=== PATIENT | female | born 2000 | race Caucasian/White ===

== ENCOUNTER 2018-10-19 00:19 | Inpatient (IN) ==
[2018-10-19 00:56] VITALS: BMI 29.5
[2018-10-19 01:06] LABS: BILIRUBIN,URINE NEGATIVE (NEGATIVE); BLOOD/HEMOGLOBIN,URINE NEGATIVE (NEGATIVE); GLUCOSE, URINE NEGATIVE (NEGATIVE); KETONES,URINE NEGATIVE (NEGATIVE); LEUKOCYTE ESTERASE ,URINE 1+ (NEGATIVE); NITRITES,URINE NEGATIVE (NEGATIVE); PROTEIN,URINE NEGATIVE (NEGATIVE); UROBILINOGEN,URINE NORMAL (NORMAL)
[2018-10-19 01:14] LABS: APPEARANCE,URINE HAZY (CLEAR); COLOR,URINE YELLOW (YELLOW); RBC,URINE 0-2 /HPF (NONE SEEN)
[2018-10-19 01:15] LABS: BACTERIA,URINE 2+ /HPF (NEGATIVE); SQUAMOUS EPITHELIAL CELL,UR FEW /HPF (NEGATIVE)
[2018-10-19] MEDS ORDERED: ZOFRAN INJ 4 MG VIAL ONE (07:35)
[2018-10-19] MEDS ORDERED: NS 1000 ML 1,000 ML ONE (07:36)
[2018-10-19] MEDS ORDERED: PITOCIN ONE (07:39)
[2018-10-19] MEDS ORDERED: D5 1/2 NS 1000 ML 1,000 ML ONE (07:45)
[2018-10-19] MEDS ORDERED: ZOFRAN INJ 4 MG VIAL IVP ONE (08:13)
[2018-10-19 08:33] LABS: BASOPHILS % (AUTO) 0.3 % (0.2-1.0); EOSINOPHILS % (AUTO) 0.1 % (0.9-2.9); HEMATOCRIT 35.2 % (36.0-47.0); HEMOGLOBIN 11.9 g/dL (12.0-16.0); LYMPHOCYTES # (AUTO) 2.1 X10^3/uL (1.3-2.9); MEAN CORPUSCULAR HEMOGLOBIN 31.8 pg (27.0-34.0); MEAN CORPUSCULAR HGB CONC 33.8 g/dL (33.0-35.0); MEAN CORPUSCULAR VOLUME 94.3 fL (80.0-100.0); MEAN PLATELET VOLUME 8.1 fL (7.4-11.0); MONOCYTES # (AUTO) 0.3 x10^3/uL (0.3-0.8); MONOCYTES % (AUTO) 1.6 % (0.0-13.0); NEUTROPHILS # (AUTO) 16.2 x10^3/uL (2.2-4.8); PLATELET COUNT 361 X10^3/uL (150.0-450.0); RED BLOOD COUNT 3.74 X10^6/uL (3.5-5.4); RED CELL DISTRIBUTION WIDTH 12.7 % (11.6-16.5); WHITE BLOOD COUNT 18.7 X10^3/uL (3.6-10.0)
[2018-10-19 08:34] LABS: BASOPHILS # (AUTO) 0.1 X10^3/uL (0.0-0.1)
[2018-10-19 08:39] LABS: BLOOD UREA NITROGEN 9 mg/dL (7-18); CALCIUM 8.2 mg/dL (8.5-10.1); CARBON DIOXIDE 22.7 mmol/L (21-32); CHLORIDE 101 mmol/L (98-107); COR NA(FOR HYPERGLY) 138 mmol/L (136-145); CREATININE 0.71 mg/dL (0.55-1.02); SODIUM 135 mmol/L (136-145); eGFR NON BLACK RACES > 60 (>60)
[2018-10-19] MEDS ORDERED: D5 1/2 NS 1L W PITOCIN 20 UNITS/L 20 UNITS/1,000 ML BAG IV ONE (08:55)
[2018-10-19] MEDS ORDERED: MOTRIN TAB 800 MG PO PRN ×2 (08:59→09:01)
[2018-10-19] MEDS ORDERED: PHENERGAN INJ 25 MG IM PRN (08:59)
[2018-10-19] MEDS: DERMOPLAST SPRAY TOP PRN ×2 (09:37→22:20)
[2018-10-20] MEDS: D5 1/2 NS 1000 ML 1,000 ML with PITOCIN 20 UNITS IV SCH ×6 (03:40→16:05)
[2018-10-20 05:49] LABS: HEMATOCRIT 33.4 % (36.0-47.0); HEMOGLOBIN 11.5 g/dL (12.0-16.0)
[2018-10-21 08:02] VITALS: BP 121/73
== END 2018-10-21 11:50 | disposition home or self-care (01) | DRG 807 ==
LOC: ER 00:40 → LD 07:41 → MED/SURG 08:22
PROVIDERS: ADMIT Specialist; ATTEND Obstetrics & Gynecology Female Pelvic Medicine and Reconstructive Surgery
DX: Z3A.37 37 weeks gestation of pregnancy; Z37.0 Single live birth; O80 Encounter for full-term uncomplicated delivery
CPT/HCPCS: 36415; 59409; 80048; 80307; 81001; 85014; 85018; 85025; 86592; 86850; 86900; 86901; 87086; 96365; 96374; 99284; A4222; G0434; J2405; J2590; J7030; S5010